=== PATIENT | female | born 1990 | race American Indian/Alaskan Native ===

== ENCOUNTER 2016-11-23 10:28 | Emergency (ER) | payer OTHER ==
[2016-11-23 10:46] VITALS: BP 131/88
[2016-11-23] MEDS ORDERED: FUL-GLO OP ONE (13:47)
[2016-11-23] MEDS ORDERED: TETRACAINE 0.5% OU PRN (13:47)
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
== END 2016-11-23 16:09 | disposition home or self-care (01) ==
LOC: ED 10:28
DX: H57.12 Ocular pain, left eye (principal); J45.909 Unspecified asthma, uncomplicated
CPT/HCPCS: 99282

== ENCOUNTER 2017-01-06 17:55 | Emergency (ER) | payer SELFPAY ==
[2017-01-06 18:26] VITALS: BP 100/58
[2017-01-06 18:59] LABS: Basophils % (Auto) 0.1 % (0.0-1.8); Eosinophils % (Auto) 0.4 % (0.0-4.3); Hematocrit 32.6 % (30.3-42.9); Hemoglobin 10.7 gm/dl (10.1-14.3); Mean Corpuscular HGB Conc 33 % (30-34); Mean Corpuscular Hemoglobin 26 pg (28-32); Mean Corpuscular Volume 80 fl (79-97); Platelet Count 209 K/mm3 (140-440); Red Blood Count 4.05 M/mm3 (3.65-5.03); Red Cell Distribution Width 16.7 % (13.2-15.2); White Blood Count 7.2 K/mm3 (4.5-11.0)
[2017-01-06 22:25] LABS: Bilirubin,Urine NEG (Negative); Blood,Urine MOD (Negative); Ketones,Urine TR mg/dL (Negative); Leukocyte Esterase,Urine TR (Negative); Mucus,Urine 3+ /HPF; Nitrite,Urine NEG (Negative); Protein,Urine <15 mg/dL mg/dL (Negative); Urobilinogen,Urine < 2.0 mg/dL (<2.0)
--- NOTE | 2017-01-09 19:36 | ED Elopement Review ---
ED Pt Elopement review - Results review Lab results: Laboratory Tests 01/06/17 01/06/17 01/06/17 18:39 18:39 Unknown WBC 7.2 RBC 4.05 Hgb 10.7 Hct 32.6 MCV 80 MCH 26 L MCHC 33 RDW 16.7 H Plt Count 209 Lymph % (Auto) 33.1 Nicholas % (Auto) 7.8 H Eos % (Auto) 0.4 Baso % (Auto) 0.1 Lymph # 2.4 Nicholas # 0.6 Eos # 0.0 Baso # 0.0 Seg Neutrophils % 58.6 Seg Neutrophils # 4.2 HCG, Quant 12622 H Urine Color Yellow Urine Turbidity Cloudy Urine pH 6.0 Ur Specific [place] 1.024 Urine Protein <15 mg/dl Urine Glucose (UA) Neg Urine Ketones Tr Urine Blood Mod Urine Nitrite Neg Urine Bilirubin Neg Urine Urobilinogen < 2.0 Ur Leukocyte Esterase Tr Urine WBC (Auto) 5.0 Urine RBC (Auto) 15.0 U Epithel Cells (Auto) 15.0 H Amorphous Crystals Few Urine Mucus 3+ - Call Back decision Pt Call Back Decision: No action required
== END 2017-01-06 22:05 | disposition left against medical advice (07) ==
LOC: ED 17:55
DX: O26.891 Other specified pregnancy related conditions, first trimester (principal); R10.9 Unspecified abdominal pain; Z3A.01 Less than 8 weeks gestation of pregnancy; Z53.21 Procedure and treatment not carried out due to patient leaving prior to being seen by health care provider
CPT/HCPCS: 36415; 81001; 84702; 85025

== ENCOUNTER 2017-02-24 19:09 | Emergency (ER) | payer SELFPAY | END 2017-02-24 20:37 | disposition home or self-care (01) | LOC: ED 19:09 | DX: N89.8 Other specified noninflammatory disorders of vagina (principal); Z53.21 Procedure and treatment not carried out due to patient leaving prior to being seen by health care provider ==

== ENCOUNTER 2018-06-17 17:32 | Emergency (ER) | payer MEDICAID ==
[2018-06-17] MEDS ORDERED: FUL-GLO OP ONE ×2 (18:59→19:03)
[2018-06-17] MEDS ORDERED: MOTRIN PO ONE (19:02)
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
[2018-06-17 19:32] VITALS: BP 118/72
== END 2018-06-17 19:30 | disposition home or self-care (01) ==
LOC: ED 17:32
DX: H18.821 Corneal disorder due to contact lens, right eye (principal); J45.909 Unspecified asthma, uncomplicated
CPT/HCPCS: 99283

== ENCOUNTER 2019-04-16 04:25 | Emergency (ER) | payer MEDICAID ==
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
[2019-04-16 05:33] LABS: Hematocrit 30.5 % (30.3-42.9); Hemoglobin 10.7 gm/dl (10.1-14.3); Mean Corpuscular HGB Conc 35 % (30-34); Mean Corpuscular Volume 88 fl (79-97); Platelet Count 186 K/mm3 (140-440); Red Blood Count 3.45 M/mm3 (3.65-5.03); Red Cell Distribution Width 14.1 % (13.2-15.2)
[2019-04-16 05:47] LABS: BUN/Creatinine Ratio 15; Blood Urea Nitrogen 9 mg/dL (7-17); Calcium 9.2 mg/dL (8.4-10.2); Hemolysis Index 10
[2019-04-16 05:49] LABS: INR 1.1 (0.87-1.13)
[2019-04-16] MEDS ORDERED: K-DUR PO ONE (06:17)
[2019-04-16 07:25] LABS: Bacteria,Urine 1+ /HPF (Negative); Bilirubin,Urine NEG (Negative); Blood,Urine SM (Negative); Color,Urine Yellow (Yellow); Mucus,Urine FEW /HPF; Protein,Urine <15 mg/dL mg/dL (Negative); Urobilinogen,Urine < 2.0 mg/dL (<2.0)
[2019-04-16 07:30] LABS: Amphetamine Screen,Urine PRESUMPTIVE NEGATIVE; Benzodiazepines Screen,Urine PRESUMPTIVE NEGATIVE; Cannabinoid Screen,Urine PRESUMPTIVE NEGATIVE; Cocaine Screen,Urine PRESUMPTIVE NEGATIVE; Methadone Screen,Urine PRESUMPTIVE NEGATIVE; Opiate Screen,Urine PRESUMPTIVE NEGATIVE
[2019-04-16] MEDS ORDERED: MACROBID PO ONE (07:49)
[2019-04-16] MEDS ORDERED: ZOFRAN IV ONE (07:49)
--- NOTE | 2019-04-16 07:50 | Emergency Department Report ---
ED Alcohol HPI - General Chief Complaint: Altered Mental Status Stated Complaint: ETOH Time Seen by Provider: 04/16/19 06:17 Source: EMS Mode of arrival: Stretcher Limitations: Altered Mental Status - History of Present Illness Initial Comments: 28-year-old female presents to the hospital currently 4 months with acute alcohol intoxication. Patient arrived via EMS. Patient apparently was found altered and acutely intoxicated in the bed with her pants off and shirt backwards. It was later determined that patient took off some of her clothes because she was vomiting and the clothes got soiled. Complains of continued nausea. When I initially went to evaluate patient she was ambulating to the wheelchair for transport to ultrasound while talking on the phone was alert. When she returned from ultrasound and was placed back in her bed she is not forthcoming with history of present illness. She was hesitant to open her eyes or answer my questions. She denies any pain. States she was vomiting and admits to alcohol intake. She has continued nausea. Mother is now at the bedside. She has had care with Dr. Franco Mcgee. - Related Data Previous Rx's Medication Instructions Recorded Last Taken Type Erythromycin [Erythromycin Ophth 1 applic OD QID #1 tube 06/17/18 Unknown Rx Oint] HYDROcodone/ACETAMINOPHEN [[place] 1 each PO Q6H #12 tablet 06/17/18 Unknown Rx 5-325 Tablet] Ibuprofen [Motrin 600 MG tab] 600 mg PO Q8H #30 tablet 06/17/18 Unknown Rx Nitrofurantoin [place]/M-Cryst 100 mg PO Q12HR #13 capsule 04/16/19 Unknown Rx [Macrobid CAP] Ondansetron [Zofran Odt] 4 mg PO Q8HR PRN #14 tab.rapdis 04/16/19 Unknown Rx Potassium Chloride [K-Dur] 20 meq PO QDAY #3 tablet 04/16/19 Unknown Rx Allergies Allergy/AdvReac Type Severity Reaction Status Date / Time No Known Allergies Allergy Verified 01/06/17 18:19 ED Review of Systems ROS: Stated complaint: ETOH Other details as noted in HPI Comment: All other systems reviewed and negative ED Past Medical Hx - Past Medical History Hx Hypertension: No Hx Asthma: Yes (last treated week of 05/11/16) Additional medical history: blood transfusions for post bleeding, anemia - Surgical History Additional Surgical History: c-sectionx1. D & C x 2 - Social History Smoking Status: Never Smoker Substance Use Type: Alcohol - Medications Home Medications: Home Medications Medication Instructions Recorded Confirmed Last Taken Type Erythromycin [Erythromycin Ophth 1 applic OD QID #1 tube 06/17/18 Unknown Rx Oint] HYDROcodone/ACETAMINOPHEN [[place] 1 each PO Q6H #12 tablet 06/17/18 Unknown Rx 5-325 Tablet] Ibuprofen [Motrin 600 MG tab] 600 mg PO Q8H #30 tablet 06/17/18 Unknown Rx Nitrofurantoin [place]/M-Cryst 100 mg PO Q12HR #13 capsule 04/16/19 Unknown Rx [Macrobid CAP] Ondansetron [Zofran Odt] 4 mg PO Q8HR PRN #14 tab.rapdis 04/16/19 Unknown Rx Potassium Chloride [K-Dur] 20 meq PO QDAY #3 tablet 04/16/19 Unknown Rx ED Physical Exam - General Limitations: Altered Mental Status - Other Other exam information: General: No limitations, patient is alert in no acute distress Head exam: Atraumatic, normocephalic Eyes exam: Normal appearance ENT: Moist mucous membrane, normal oropharynx Neck exam: Normal inspection, full range of motion, no meningismus nontender Respiratory exam: Clear to auscultation bilateral, no wheezes, rales, crackles Cardiovascular: Normal rate and rhythm, normal heart sounds Abdomen: Soft, nondistended, and nontender, with normal bowel sounds, no rebound, or guarding Extremity: Full range of motion normal inspection no deformity Back: Normal Inspection, full range of motion, no tenderness Neurologic: Alert, oriented x3, cranial nerves intact, no motor or sensory deficit Psychiatric: normal affect, normal mood Skin: Warm, dry, intact ED Course Vital Signs 04/16/19 04/16/19 04/16/19 04:40 05:14 05:18 Temperature 98.2 F Pulse Rate 99 H 109 H Respiratory 22 12 10 L Rate Blood Pressure 112/79 110/77 [Left] O2 Sat by Pulse 98 99 99 Oximetry 04/16/19 08:37 Temperature Pulse Rate 88 Respiratory 17 Rate Blood Pressure 98/54 [Left] O2 Sat by Pulse 98 Oximetry - Consultations Consultation #1: 04/16/19 08:24 Case discussed with her UNIVERS[employer] T[employer] doctor Dr. Franco Mcgee. He was informed that patient presents to the hospital today with acute alcohol intoxication. Ultrasound confirms 19 weeks and 2 day without any acute abnormalities at this time. ED Medical Decision Making - Lab Data Result diagrams: 04/16/19 05:06 04/16/19 05:06 Lab Results 04/16/19 04/16/19 04/16/19 Range/Units 05:06 05:06 05:06 WBC 9.3 (4.5-11.0) K/mm3 RBC 3.45 L (3.65-5.03) M/mm3 Hgb 10.7 (10.1-14.3) gm/dl Hct 30.5 (30.3-42.9) % MCV 88 (79-97) fl MCH 31 (28-32) pg MCHC 35 H (30-34) % RDW 14.1 (13.2-15.2) % Plt Count 186 (140-440) K/mm3 PT 13.9 (12.2-14.9) Sec. INR 1.10 (0.87-1.13) Sodium 139 (137-145) mmol/L Potassium 3.2 L (3.6-5.0) mmol/L Chloride 102.5 (98-107) mmol/L Carbon Dioxide 20 L (22-30) mmol/L Anion Gap 20 mmol/L BUN 9 (7-17) mg/dL Creatinine 0.6 L (0.7-1.2) mg/dL Estimated GFR > 60 ml/min BUN/Creatinine Ratio 15 % Glucose 98 (65-100) mg/dL Calcium 9.2 (8.4-10.2) mg/dL Magnesium 1.90 (1.7-2.3) mg/dL Total Creatine Kinase 150 H (30-135) units/L HCG, Quant (0-4) mIU/mL Urine Color (Yellow) Urine Turbidity (Clear) Urine pH (5.0-7.0) Ur Specific [place]inkle (1.003-1.030) Urine Protein (Negative) mg/dL Urine Glucose (UA) (Negative) mg/dL Urine Ketones (Negative) mg/dL Urine Blood (Negative) Urine Nitrite (Negative) Urine Bilirubin (Negative) Urine Urobilinogen (<2.0) mg/dL Ur Leukocyte Esterase (Negative) Urine WBC (Auto) (0.0-6.0) /HPF Urine RBC (Auto) (0.0-6.0) /HPF U Epithel Cells (Auto) (0-13.0) /HPF Urine Bacteria (Auto) (Negative) /HPF Urine Mucus /HPF Salicylates (2.8-20.0) mg/dL Urine Opiates Screen Urine Methadone Screen Acetaminophen (10.0-30.0) ug/mL Ur Barbiturates Screen Ur Phencyclidine Scrn Ur Amphetamines Screen U Benzodiazepines Scrn Urine Cocaine Screen U Marijuana (THC) Screen Drugs of Abuse Note Plasma/Serum Alcohol (0-0.07) % Blood Type Antibody Screen 04/16/19 04/16/19 04/16/19 Range/Units 05:06 05:06 05:06 WBC (4.5-11.0) K/mm3 RBC (3.65-5.03) M/mm3 Hgb (10.1-14.3) gm/dl Hct (30.3-42.9) % MCV (79-97) fl MCH (28-32) pg MCHC (30-34) % RDW (13.2-15.2) % Plt Count (140-440) K/mm3 PT (12.2-14.9) Sec. INR (0.87-1.13) Sodium (137-145) mmol/L Potassium (3.6-5.0) mmol/L Chloride (98-107) mmol/L Carbon Dioxide (22-30) mmol/L Anion Gap mmol/L BUN (7-17) mg/dL Creatinine (0.7-1.2) mg/dL Estimated GFR ml/min BUN/Creatinine Ratio % Glucose (65-100) mg/dL Calcium (8.4-10.2) mg/dL Magnesium (1.7-2.3) mg/dL Total Creatine Kinase (30-135) units/L HCG, Quant 5510 H (0-4) mIU/mL Urine Color (Yellow) Urine Turbidity (Clear) Urine pH (5.0-7.0) Ur Specific [place]inkle (1.003-1.030) Urine Protein (Negative) mg/dL Urine Glucose (UA) (Negative) mg/dL Urine Ketones (Negative) mg/dL Urine Blood (Negative) Urine Nitrite (Negative) Urine Bilirubin (Negative) Urine Urobilinogen (<2.0) mg/dL Ur Leukocyte Esterase (Negative) Urine WBC (Auto) (0.0-6.0) /HPF Urine RBC (Auto) (0.0-6.0) /HPF U Epithel Cells (Auto) (0-13.0) /HPF Urine Bacteria (Auto) (Negative) /HPF Urine Mucus /HPF Salicylates < 0.3 L (2.8-20.0) mg/dL Urine Opiates Screen Urine Methadone Screen Acetaminophen < 5.0 L (10.0-30.0) ug/mL Ur Barbiturates Screen Ur Phencyclidine Scrn Ur Amphetamines Screen U Benzodiazepines Scrn Urine Cocaine Screen U Marijuana (THC) Screen Drugs of Abuse Note Plasma/Serum Alcohol (0-0.07) % Blood Type Antibody Screen 04/16/19 04/16/19 04/16/19 Range/Units 05:06 05:06 05:45 WBC (4.5-11.0) K/mm3 RBC (3.65-5.03) M/mm3 Hgb (10.1-14.3) gm/dl Hct (30.3-42.9) % MCV (79-97) fl MCH (28-32) pg MCHC (30-34) % RDW (13.2-15.2) % Plt Count (140-440) K/mm3 PT (12.2-14.9) Sec. INR (0.87-1.13) Sodium (137-145) mmol/L Potassium (3.6-5.0) mmol/L Chloride (98-107) mmol/L Carbon Dioxide (22-30) mmol/L Anion Gap mmol/L BUN (7-17) mg/dL Creatinine (0.7-1.2) mg/dL Estimated GFR ml/min BUN/Creatinine Ratio % Glucose (65-100) mg/dL Calcium (8.4-10.2) mg/dL Magnesium (1.7-2.3) mg/dL Total Creatine Kinase (30-135) units/L HCG, Quant (0-4) mIU/mL Urine Color Yellow (Yellow) Urine Turbidity Slightly-cloudy (Clear) Urine pH 6.0 (5.0-7.0) Ur Specific Hinkle 1.013 (1.003-1.030) Urine Protein <15 mg/dl (Negative) mg/dL Urine Glucose (UA) Neg (Negative) mg/dL Urine Ketones 20 (Negative) mg/dL Urine Blood Sm (Negative) Urine Nitrite Pos (Negative) Urine Bilirubin Neg (Negative) Urine Urobilinogen < 2.0 (<2.0) mg/dL Ur Leukocyte Esterase Tr (Negative) Urine WBC (Auto) 4.0 (0.0-6.0) /HPF Urine RBC (Auto) 1.0 (0.0-6.0) /HPF U Epithel Cells (Auto) 3.0 (0-13.0) /HPF Urine Bacteria (Auto) 1+ (Negative) /HPF Urine Mucus Few /HPF Salicylates (2.8-20.0) mg/dL Urine Opiates Screen Urine Methadone Screen Acetaminophen (10.0-30.0) ug/mL Ur Barbiturates Screen Ur Phencyclidine Scrn Ur Amphetamines Screen U Benzodiazepines Scrn Urine Cocaine Screen U Marijuana (THC) Screen Drugs of Abuse Note Plasma/Serum Alcohol 0.20 H (0-0.07) % Blood Type B POSITIVE Antibody Screen Negative 04/16/19 Range/Units 05:45 WBC (4.5-11.0) K/mm3 RBC (3.65-5.03) M/mm3 Hgb (10.1-14.3) gm/dl Hct (30.3-42.9) % MCV (79-97) fl MCH (28-32) pg MCHC (30-34) % RDW (13.2-15.2) % Plt Count (140-440) K/mm3 PT (12.2-14.9) Sec. INR (0.87-1.13) Sodium (137-145) mmol/L Potassium (3.6-5.0) mmol/L Chloride (98-107) mmol/L Carbon Dioxide (22-30) mmol/L Anion Gap mmol/L BUN (7-17) mg/dL Creatinine (0.7-1.2) mg/dL Estimated GFR ml/min BUN/Creatinine Ratio % Glucose (65-100) mg/dL Calcium (8.4-10.2) mg/dL Magnesium (1.7-2.3) mg/dL Total Creatine Kinase (30-135) units/L HCG, Quant (0-4) mIU/mL Urine Color (Yellow) Urine Turbidity (Clear) Urine pH (5.0-7.0) Ur Specific Hinkle (1.003-1.030) Urine Protein (Negative) mg/dL Urine Glucose (UA) (Negative) mg/dL Urine Ketones (Negative) mg/dL Urine Blood (Negative) Urine Nitrite (Negative) Urine Bilirubin (Negative) Urine Urobilinogen (<2.0) mg/dL Ur Leukocyte Esterase (Negative) Urine WBC (Auto) (0.0-6.0) /HPF Urine RBC (Auto) (0.0-6.0) /HPF U Epithel Cells (Auto) (0-13.0) /HPF Urine Bacteria (Auto) (Negative) /HPF Urine Mucus /HPF Salicylates (2.8-20.0) mg/dL Urine Opiates Screen Presumptive negative Urine Methadone Screen Presumptive negative Acetaminophen (10.0-30.0) ug/mL Ur Barbiturates Screen Presumptive negative Ur Phencyclidine Scrn Presumptive negative Ur Amphetamines Screen Presumptive negative U Benzodiazepines Scrn Presumptive negative Urine Cocaine Screen Presumptive negative U Marijuana (THC) Screen Presumptive negative Drugs of Abuse Note Disclamer Plasma/Serum Alcohol (0-0.07) % Blood Type Antibody Screen - Radiology Data Radiology results: report reviewed PROCEDURE: US OB >= 14 WEEKS FETUS TECHNIQUE: Transabdominal second trimester ultrasound utilizing grayscale, color Doppler and M- mode technique HISTORY: , high risk, ams COMPARISONS: 01/06/2019 FINDINGS: There is a single living intrauterine in cephalic presentation with recorded cardiac activity of 148 bpm. Amniotic fluid volume is subjectively normal. Anterior placenta. A few placental lakes are noted. The placenta is otherwise homogeneous. No evident previa. The cervix appears closed and measures around 5 cm in length. Biparietal diameter is 4.4 cm Head circumference is 16.1 cm Abdominal circumference is 15.1 cm Femoral length is 2.9 cm biometric measurement composite results in estimated gestational age of 19 weeks 2 days corresponding to delivery date of 09/08/2019. Estimated weight is 298 g, which corresponds to the 43rd percentile based on prior established dating. The imaged anatomy is grossly unremarkable. IMPRESSION: Single living intrauterine with concordant size and dates and no evident complication, as detailed above. - Medical Decision Making She presents 19 weeks with acute alcohol intoxication. Zofran provided for persistent nausea. By mouth potassium and Macrobid given for mild hypokalemia and UA findings of UTI. Patient does not have any pain. Patient is at baseline mental status and alertness steady gait at time of discharge. Patient discharged into the care of mother - Differential Diagnosis alcohol intoxication, substance abuse Critical Care Time: No Critical care attestation.: If time is entered above; I have spent that time in minutes in the direct care of this critically ill patient, excluding procedure time. ED Disposition Clinical Impression: Acute alcohol intoxication, 19 weeks gestation of , UTI (urinary tract infection), Hypokalemia, Nausea and vomiting Disposition: DC-01 TO HOME OR SELFCARE Is pt being admited?: No Does the pt Need Aspirin: No Condition: Stable Instructions: (ED), Urinary Tract Infection in Women (ED), Hypokalemia (ED), Alcohol Intoxication (ED), Acute Nausea and Vomiting (ED) Additional Instructions: Abstain from drinking alcohol while you are . Follow-up with your [employer]IV[employer] [employer]OR doctor Alcohol Effects on a Fetus: What effect does alcohol have on a fetus? A woman who drinks alcohol while she is may harm her developing baby (fetus). Alcohol can pass from the mother's blood into the baby's blood. It can damage and affect the growth of the baby's cells. Brain and spinal cord cells are most likely to have damage. The term alcohol spectrum disorder (FASD) describes the range of alcohol effects on a child. The problems range from mild to severe. Alcohol can cause a child to have physical or mental problems that may last all of his or her life. The effects of alcohol can include: Distinctive facial features. A child may have a small head, flat face, and narrow eye openings, for instance. This gets more obvious by age 2 or 3 years. Growth problems. Children who were exposed to alcohol before they were born may be smaller than other children of the same age. Learning and behavior problems. defects. Problems bonding or feeding as a . Heavy alcohol use during can also lead to miscarriage , stillbirth, or a baby being born early . How much alcohol is safe? Although the risk is higher with heavy alcohol use, any amount of alcohol may affect your developing baby. Heavy drinking (5 or more drinks on at least one occasion) during can severely affect a developing baby. You can prevent FASD by not drinking at all while you are . That is what many doctors suggest. The effects that alcohol has on a developing baby depend on: How much, how often, and at what stage of the mother drinks alcohol. The worst effects often are related to heavy alcohol use. Whether the mother used other drugs, smoked, or had poor health for any reason while she was . In these cases, the child is more likely to have problems. Traits passed down through families. Some babies are more likely to be harmed by alcohol than others. It's not clear why, but there may be a genetic link. What can you do if you're and have had alcohol? Try to talk openly with your doctor if you have had alcohol while you're . The earlier you tell your doctor, the better the chances are for your child. If your doctor knows to look for FASD-related problems while you're , he or she can watch your baby's health both before and after . And the doctor will know to do more tests, if needed, as your child grows. If you think you might have a drinking problem, talk with your doctor, counselor, or other support person. Doing this can help you to see and address how alcohol may affect many parts of your life, including your . When are alcohol effects on a fetus diagnosed? Signs of FASD don't always appear at . A doctor may be able to spot severe alcohol effects ( alcohol syndrome, or FAS ) in the child at . But less severe effects, such as behavior or learning problems, may not be noticed until the child is in school. Sometimes the doctor can find severe problems before the baby is born. If your doctor knows about your alcohol use, he or she can order a test ( ultrasound ) to look for signs of FAS in your baby, such as heart defects or growth delays. The cause of problems that are found during the test may not be clear. But the findings alert the doctor to any special care a baby may need after he or she is born. What is the treatment for a child born with alcohol effects? Caring for a child born with alcohol effects takes patience. Help for your child may include extra support in school, social skills training, job training, and counseling . Community services may be able to help your family handle the costs of and emotions from raising your child. Finding alcohol effects early, even if they are mild, gives a child the best chance to reach his or her full potential in life. Finding the problem early may help prevent problems in school and mental health problems, such as substance abuse , depression , or anxiety . There is no treatment that can reverse the impact of alcohol on your baby's health. And there's no treatment that can make the effects less severe. Prescriptions: Potassium Chloride [K-Dur] 20 meq PO QDAY #3 tablet Nitrofurantoin Blair/M-Cryst [Macrobid CAP] 100 mg PO Q12HR #13 capsule Ondansetron [Zofran Odt] 4 mg PO Q8HR PRN #14 tab.rapdis PRN Reason: Nausea And Vomiting Referrals: FRANCO MCGEE MD [Staff Physician] - 3-5 Days Time of Disposition: 08:38
--- NOTE | 2019-04-16 07:55 | Ultrasound Report ---
PROCEDURE: US OB >= 14 WEEKS FETUS TECHNIQUE: Transabdominal second trimester ultrasound utilizing grayscale, color Doppler and M-mode technique HISTORY: , high risk, ams COMPARISONS: 01/06/2019 FINDINGS: There is a single living intrauterine in cephalic presentation with recorded cardiac activi ty of 148 bpm. Amniotic fluid volume is subjectively normal. Anterior placenta. A few placental lakes are noted. The placenta is otherwise homogeneous. No evident previa. The cervix appears closed and m easures around 5 cm in length. Biparietal diameter is 4.4 cm Head circumference is 16.1 cm Abdominal circumference is 15.1 cm Femoral length is 2.9 cm biometric measurement composite results in estimated gestational age of 19 weeks 2 days corresp onding to delivery date of 09/08/2019. Estimated weight is 298 g, which corresponds to the 43rd percentile based on prior established dating. The imaged anatomy is grossly unremarkable. IMPRESSION: Single living intrauterine with concordant size and dates and no evident complication, as d etailed above. This document is electronically signed by Lewis Serrano MD., April 16 2019 07:54:00 AM ET
[2019-04-16 08:38] VITALS: BP 98/54
== END 2019-04-16 08:53 | disposition home or self-care (01) ==
LOC: ED 04:25
DX: O26.892 Other specified pregnancy related conditions, second trimester (principal); F10.129 Alcohol abuse with intoxication, unspecified; E87.6 Hypokalemia; O23.42 Unspecified infection of urinary tract in pregnancy, second trimester; O99.512 Diseases of the respiratory system complicating pregnancy, second trimester; J45.909 Unspecified asthma, uncomplicated; Z3A.19 19 weeks gestation of pregnancy; Z79.899 Other long term (current) drug therapy
CPT/HCPCS: 36415; 76805; 80048; 80307; 81001; 82550; 83735; 84702; 85027; 85610; 86850; 86900; 86901; 93005; 93010; 96374; 99285; G0480; J2405; 80320

== ENCOUNTER 2019-05-06 14:49 | Outpatient (CLI) | payer MEDICAID ==
[2019-05-06 15:58] VITALS: BP 113/71
[2019-05-06] MEDS ORDERED: LACTATED RINGERS 500 ML IV ONE (16:06)
[2019-05-06 16:30] LABS: Basophils % (Auto) 0.1 % (0.0-1.8); Eosinophils % (Auto) 0.2 % (0.0-4.3); Hematocrit 30.6 % (30.3-42.9); Hemoglobin 10.5 gm/dl (10.1-14.3); Lymphocytes # (Auto) 1.5 K/mm3 (1.2-5.4); Lymphocytes % (Auto) 15.6 % (13.4-35.0); Mean Corpuscular HGB Conc 34 % (30-34); Mean Corpuscular Hemoglobin 31 pg (28-32); Mean Corpuscular Volume 89 fl (79-97); Monocytes # (Auto) 0.6 K/mm3 (0.0-0.8); Monocytes % (Auto) 6.3 % (0.0-7.3); Platelet Count 191 K/mm3 (140-440); Red Blood Count 3.45 M/mm3 (3.65-5.03); Red Cell Distribution Width 14.1 % (13.2-15.2)
[2019-05-06 16:57] LABS: Bacteria,Urine 1+ /HPF (Negative); Bilirubin,Urine NEG (Negative); Blood,Urine SM (Negative); Color,Urine Yellow (Yellow); Mucus,Urine FEW /HPF; Urobilinogen,Urine < 2.0 mg/dL (<2.0)
--- NOTE | 2019-05-06 17:38 | Ultrasound Report ---
OB ultrasound, limited History: PLACENTA SCAN FOR ABRUPTION Comparison: Comparison is with 04/16/2019 prior OB ultrasound Procedure: Real time ultrasound was utilized to evaluate. Findings: A single intrauterine is present in a cephalic presentation. Placenta is anterior ly located with grade 0. No evidence of abruption. . cardiac activity is present with a rate of 147 bpm. Impression: 1. Single viable IUP. Placenta is unremarkable in appearance and without evidence for abruption. Signer Name: Tika Pedroza MD Signed: 05/06/2019 5:34 PM Workstation Name: [id number]
[2019-05-06] MEDS ORDERED: PERCOCET 5/325 PO ONE (18:00)
[2019-05-06] MEDS ORDERED: LACTATED RINGERS 0 ML ONE (19:06)
== END 2019-05-06 21:04 | disposition home or self-care (01) ==
LOC: TRG 14:49 → APU 14:50 → TRG 21:04
PROVIDERS: ATTEND Obstetrics & Gynecology
DX: O47.02 False labor before 37 completed weeks of gestation, second trimester (principal); Z3A.22 22 weeks gestation of pregnancy
CPT/HCPCS: 36415; 76815; 81001; 85025; 85460; J7120

== ENCOUNTER 2019-06-22 18:22 | Outpatient (CLI) | payer MEDICAID ==
[2019-06-22 18:53] VITALS: BP 100/58
[2019-06-22] MEDS ORDERED: LACTATED RINGERS 1,000 ML ONE (20:24)
== END 2019-06-22 22:25 | disposition home or self-care (01) ==
LOC: TRG 18:22
PROVIDERS: ATTEND Obstetrics & Gynecology
DX: O26.893 Other specified pregnancy related conditions, third trimester (principal); N89.8 Other specified noninflammatory disorders of vagina; R10.2 Pelvic and perineal pain; Z3A.29 29 weeks gestation of pregnancy
CPT/HCPCS: 59025; 87210; J7120

== ENCOUNTER 2019-07-23 15:37 | Outpatient (CLI) | payer MEDICAID ==
[2019-07-23 15:50] VITALS: BP 110/59
== END 2019-07-23 16:56 | disposition home or self-care (01) ==
LOC: TRG 15:37
PROVIDERS: ATTEND Obstetrics & Gynecology
DX: O47.03 False labor before 37 completed weeks of gestation, third trimester (principal); Z3A.33 33 weeks gestation of pregnancy
CPT/HCPCS: 59025

== ENCOUNTER 2019-09-06 17:04 | Inpatient (IN) | payer MEDICAID ==
[2019-09-06] MEDS ORDERED: fentaNYL 100 MCG/2 ML INJ IV PRN (19:25)
[2019-09-06] MEDS ORDERED: LIDOCAINE (2%) 20 MG/1 ML VIAL 20 ML MDV INFILTRATI ONE ×2 (19:25→21:08)
[2019-09-06] MEDS ORDERED: NalbUPHINE 10 MG/1 ML INJ IV PRN (19:25)
[2019-09-06] MEDS ORDERED: MINERAL OIL 30 ML ORAL LIQD PO PRN ×2 (19:25→21:08)
[2019-09-06] MEDS ORDERED: TERBUTALINE 1 MG/1 ML INJ IVP PRN ×2 (19:25→21:08)
[2019-09-06] MEDS ORDERED: ePHEDrine SULFATE 50 MG/1 ML INJ IV PRN ×2 (19:25→21:08)
[2019-09-06] MEDS ORDERED: TERBUTALINE 1 MG/1 ML INJ SUB-Q PRN ×2 (19:25→21:08)
[2019-09-06] MEDS ORDERED: OXYTOCIN 20 UNIT/1000ML DRIP 20 UNITS/1,000 ML BAG IV SCH ×2 (20:00→22:00)
[2019-09-06] MEDS ORDERED: LACTATED RINGERS 1,000 ML IV SCH ×2 (20:00→22:00)
[2019-09-06] MEDS ORDERED: OXYTOCIN DRIP 30 UNITS/500 ML BAG IV SCH ×3 (20:00→22:00)
[2019-09-06 20:04] LABS: Hematocrit 31.5 % (30.3-42.9); Hemoglobin 10.7 gm/dl (10.1-14.3); Mean Corpuscular HGB Conc 34 % (30-34); Mean Corpuscular Volume 81 fl (79-97); Platelet Count 230 K/mm3 (140-440); Red Blood Count 3.87 M/mm3 (3.65-5.03)
[2019-09-06] MEDS ORDERED: BUTORPHANOL 2 MG/1 ML INJ IV PRN (21:08)
[2019-09-06] MEDS ORDERED: AMPICILLIN/NS 2 GM/100 ML 2 GM/100 ML BAG IV ONE (21:08)
[2019-09-06] MEDS ORDERED: ONDANSETRON 4 MG/2 ML INJ IV PRN (21:08)
[2019-09-06] MEDS ORDERED: NALOXONE 0.4 MG/1 ML INJ IV PRN (21:08)
--- NOTE | 2019-09-06 21:08 | History and Physical Report ---
History of Present Illness Date of examination: 09/06/19 Date of admission: 09/06/19 19:59 Chief complaint: Leaking fluid History of present illness: Pt is a 29yo BF EDC 09/08/19; EGA 39 5/7 weeks presents to L&D complaining of leaking fluid and irregular contractions. She received care at [facility] since 13 weeks and course significant for previous C Section - she desires a TOLAC. records are available and GBS is Negative. 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: abnormal PAP smear Family/Genetic History: diabetes, hypertension, cancer Social history: no significant social history, single - Obstetrical History Expected Date of Delivery: 09/08/19 Actual Gestation: 39 Week(s) 5 Day(s) : 5 Medications and Allergies Allergies Allergy/AdvReac Type Severity Reaction Status Date / Time No Known Allergies Allergy Verified 06/22/19 21:12 Home Medications Medication Instructions Recorded Confirmed Last Taken Type Erythromycin [Erythromycin Ophth 1 applic OD QID #1 tube 06/17/18 Unknown Rx Oint] HYDROcodone/ACETAMINOPHEN [[place] 1 each PO Q6H #12 tablet 06/17/18 Unknown Rx 5-325 Tablet] Ibuprofen [Motrin 600 MG tab] 600 mg PO Q8H #30 tablet 06/17/18 Unknown Rx Nitrofurantoin [place]/M-Cryst 100 mg PO Q12HR #13 capsule 04/16/19 Unknown Rx [Macrobid CAP] Ondansetron [Zofran Odt] 4 mg PO Q8HR PRN #14 tab.rapdis 04/16/19 Unknown Rx Potassium Chloride [K-Dur] 20 meq PO QDAY #3 tablet 04/16/19 Unknown Rx Clindamycin [Clindamycin CAP] 300 mg PO Q8H #21 cap 06/22/19 Unknown Rx Active Meds: Active Medications Ephedrine Sulfate (Ephedrine Sulfate) 10 mg IV Q2M PRN PRN Reason: Hypotension Fentanyl (Sublimaze) 100 mcg IV Q2H PRN PRN Reason: Labor Pain Oxytocin/Sodium Chloride (Pitocin/Ns 20 Unit/1000ml Drip) 20 units in 1,000 mls @ 125 mls/hr IV DIRECT HUA Oxytocin/Sodium Chloride (Pitocin/Ns 30 Unit/500ml) 30 units in 500 mls @ 1 mls/hr IV TITR HUA; Protocol Lactated Ringer's (Lactated Ringers) 1,000 mls @ 125 mls/hr IV DIRECT HUA Mineral Oil (Mineral Oil) 30 ml PO QHS PRN PRN Reason: Constipation Nalbuphine HCl (Nalbuphine) 10 mg IV Q2H PRN PRN Reason: Pain, Moderate (4-6) Terbutaline Sulfate (Brethine) 0.25 mg SUB-Q ONCE PRN PRN Reason: Hyperstimulation/Hypertonicity Terbutaline Sulfate (Brethine) 0.25 mg IVP ONCE PRN PRN Reason: Hyperstimulation/Hypertonicity Review of Systems All systems: negative - Vital Signs Vital signs: Vital Signs Pulse BP 88 124/73 09/06/19 17:45 09/06/19 17:45 Temp Pulse Resp BP Pulse Ox 98.1 F 81 24 127/75 09/06/19 19:56 09/06/19 20:24 09/06/19 19:56 09/06/19 20:24 - Physical Exam Breasts: Positive: deferred Lungs: Positive: Clear to auscultation Abdomen: Positive: normal appearance Genitourinary (Female): Positive: normal external genitalia Vagina: Positive: normal moisture Uterus: Positive: enlarged Extremities: Positive: normal - Obstetrical FHR: category 1 Uterine Contraction Monitor Mode: External Cervical Dilatation: 3.5 (per nurse) Cervical Effacement Percentage: 50 (per nurse) station: -3 Uterine Contraction Pattern: Irregular Uterine Tone Measurement Phase: Contraction Uterine Contraction Intensity: Mild Results Result Diagrams: 09/06/19 19:31 Abnormal lab results 09/06/19 Range/Units 19:31 RDW 17.0 H (13.2-15.2) % All other labs normal. Assessment and Plan - Patient Problems (1) 39 weeks gestation of Onset Date: 09/06/19 Current Visit: Yes Status: Acute Plan to address problem: A: IUP @ 39 5/7 weeks in labor Previous C Section P: Admit to L&D for TOLAC (2) Previous section Onset Date: 09/06/19 Current Visit: Yes Status: Acute
[2019-09-07] MEDS ORDERED: FAMOTIDINE 20 MG/2 ML INJ IV ONE ×2 (00:05→03:18)
[2019-09-07] MEDS ORDERED: BICITRA ORAL LIQD 30ML PO ONE (00:05)
[2019-09-07] MEDS ORDERED: METOCLOPRAMIDE 10 MG/2 ML INJ IV ONE (00:05)
[2019-09-07] MEDS ORDERED: OXYTOCIN 20 UNIT/1000ML DRIP 20 UNITS/1,000 ML BAG IV SCH ×2 (01:00→08:00)
[2019-09-07] MEDS ORDERED: ceFAZolin/Water 2 GM/20 ML 2 GM/20 ML SYRINGE IV NR (01:00)
[2019-09-07] MEDS ORDERED: AMPICILLIN/NS 1 GM/50 ML 1 GM/50 ML BAG IV SCH (01:11)
[2019-09-07] MEDS ORDERED: BICITRA ORAL LIQD 30ML ONE (03:17)
[2019-09-07] MEDS ORDERED: METOCLOPRAMIDE 10 MG/2 ML INJ ONE (03:17)
[2019-09-07] MEDS: LACTATED RINGERS 1,000 ML IV SCH ×2 (04:30→05:36)
[2019-09-07] MEDS ORDERED: SODIUM CHLORIDE 0.9% IRR 1,500 ML BOTTLE IR ONE (06:07)
[2019-09-07] MEDS ORDERED: WATER FOR IRRIG STERILE 1,500 ML BOTTLE IR ONE (06:07)
--- NOTE | 2019-09-07 06:32 | Anesthesia Consultation ---
Anesthesia Consult and Med Hx Date of service: 09/07/19 - Airway Anesthetic Teeth Evaluation: Good ROM Head & Neck: Adequate Mental/Hyoid Distance: Adequate Mallampati Class: Class II Intubation Access Assessment: Good - Pulmonary Exam CTA: Yes - Cardiac Exam Cardiac Exam: RRR - Pre-Operative Health Status ASA Pre-Surgery Classification: ASA2 Proposed Anesthetic Plan: Spinal - Pulmonary Hx Smoking: No Hx Asthma: No COPD: No Hx Pneumonia: No - Cardiovascular System Hx Hypertension: No - Central Nervous System Hx Seizures: No Hx Psychiatric Problems: No - Endocrine Hx Renal Disease: No Hx End Stage Renal Disease: No Hx Hypothyroidism: No Hx Hyperthyroidism: No - Hematic Hx Anemia: Yes Hx Sickle Cell Disease: No - Other Systems Hx Alcohol Use: No Hx Cancer: No
--- NOTE | 2019-09-07 06:34 | Anesthesia Day of Surgery ---
Anesthesia Day of Surgery - Day of Surgery Patient Examined: Yes Patient H&P Reviewed: Yes Patient is NPO: Yes
[2019-09-07] MEDS ORDERED: ONDANSETRON 4 MG/2 ML INJ IV PRN (06:35)
[2019-09-07] MEDS ORDERED: PROMETHAZINE 25 MG RECT SUPP PR PRN (06:35)
[2019-09-07] MEDS ORDERED: PROMETHAZINE 25 MG TAB PO PRN (06:35)
[2019-09-07] MEDS ORDERED: NALOXONE 0.4 MG/1 ML INJ IV PRN ×2 (06:35→08:00)
[2019-09-07] MEDS ORDERED: HYDROmorphone 1 MG/1 ML INJ IV PRN ×2 (06:35)
[2019-09-07] MEDS ORDERED: HYDROmorphone 1 MG/1 ML INJ ONE (07:00)
[2019-09-07] MEDS ORDERED: ONDANSETRON 4 MG/2 ML INJ ONE (07:00)
[2019-09-07] MEDS ORDERED: diphenhydrAMINE 50 MG/ML VIAL ONE (07:00)
[2019-09-07] MEDS ORDERED: fentaNYL-BUPIV 2 MCG/ML-0.125% 200 MCG/100 ML BAG EPIDURAL SCH (07:00)
[2019-09-07] MEDS ORDERED: DEXMEDETOMIDINE 200 MCG/2 ML VIAL IV ONE (07:00)
[2019-09-07] MEDS ORDERED: KETOROLAC 30 MG/1 ML INJ ONE (07:00)
--- NOTE | 2019-09-07 07:11 | Operative Report ---
Operative Report Operative Report: Date of procedure: 09/07/2019 Pre-operative diagnosis: 1. Intrauterine at 39 6/7 weeks in labor 2. Previous C Section Post-operative diagnosis: same Procedure name(s): Repeat low transverse section Surgeon: Franco Mcgee MD Author Agent: None Anesthesia: Spinal anesthesia by Francisco Javier Wilkes CRNA EBL: 800 mL's Findings: A 3396 gm male infant Apgars 8 at 1 minute 9 at 5 minutes. Clear amniotic fluid. Normal uterus. Normal tubes and ovaries bilaterally. Procedure: After the patient was prepped and draped in usual sterile fashion, and after satisfactory level of spinal anesthesia was obtained, the skin knife was used to make a transverse skin incision through the previous skin scar. The incision was incised down to layer of the fascia, which was nicked in the midline and extended laterally using the Bovie cautery. The rectus muscles were dissected off the rectus fascia both superiorly and inferiorly. The rectus bellies in the midline, and the peritoneum was entered under direct visualization. The peritoneal incision was extended superiorly and inferiorly. A bladder flap was created and the bladder blade was then placed. The uterus was scored in a curvilinear linear fashion, entered in the midline revealing clear amniotic fluid. The infant's head was delivered onto the surgical field with the aid of a vacuum, and the oropharynx and nasopharynx were bulb suctioned. The rest of the 's body was delivered, cord was doubly clamped and cut and the infant was handed to the awaiting respiratory team. The placenta was manually removed from the uterus, and the uterus removed from its normal anatomical position. After gentle uterine lavage, the incision was inspected and found to be without extensions. It was then closed in 2 layers using 0 Vicryl suture in a running interlocking fashion, the second layer imbricating the first. After good hemostasis was achieved, copious amounts or irrigation was performed, and the gutters were suctioned free of blood and blood clots. The peritoneum was re-approximated using 3-0 Vicryl suture in a running interlocking fashion, and then the rectus muscles were loosely re-approximated using 3-0 Vicryl suture in a [id number] configuration. The fascia was then re-approximated using 0 Vicryl suture in running interlocking fashion. The subcutaneous layer was made hemostatic using Bovie cautery, and the skin edges re-approximated using 4-0 Vicryl suture in a sub-cuticular fashion. Patient tolerated the procedure well was transported to recovery in stable condition.
[2019-09-07] MEDS ORDERED: ACETAMINOPHEN 325 MG TAB PO PRN (07:30)
[2019-09-07] MEDS ORDERED: HYDROcodone/ACETAMINOPHEN 5-325 MG TAB PO PRN (07:30)
[2019-09-07] MEDS ORDERED: WITCH HAZEL/ GLYCERIN PAD TP PRN (07:30)
[2019-09-07] MEDS ORDERED: D5W/LACTATED RINGERS 1,000 ML IV SCH (08:00)
[2019-09-07] MEDS ORDERED: LANOLIN/ZINC/DIMETHICONE (LANSINOH) 7 GM TP PRN (08:00)
[2019-09-07] MEDS ORDERED: SIMETHICONE 80 MG CHEW TAB PO PRN (08:00)
--- NOTE | 2019-09-07 08:33 | Post Anesthesia Evaluation ---
- Post Anesthesia Evaluation Patient Participated: Yes Airway Patent: Yes Stable Respiratory Function: Yes Nausea/Vomiting: No Temp > 96.8F: Yes Pain Manageable: Yes Adequeate Hydration: Yes Anesthesia Complications: No Block Receding Appropriately: Yes Patient on Ventilator: No
[2019-09-07] MEDS: PRENATAL VIT27-FE FUMARATE-FOLIC ACID VIT TAB PO SCH (09:50)
[2019-09-07] MEDS: FERROUS SULFATE 325 MG TAB PO SCH (09:50)
[2019-09-07] MEDS: KETOROLAC 30 MG/1 ML INJ IV PRN ×2 (09:50→15:24)
[2019-09-07] MEDS: ceFAZolin/NS 1 GM/50 ML 1 GM/50 ML BAG IV SCH (15:24)
[2019-09-07] MEDS: oxyCODONE /ACETAMINOPHEN 5-325MG TAB PO PRN (19:30)
[2019-09-07 20:46] LABS: Hematocrit 25.1 % (30.3-42.9); Hemoglobin 8.3 gm/dl (10.1-14.3)
[2019-09-07] MEDS ORDERED: MAGNESIUM HYDROXIDE (MOM) ORAL LIQD UDC PO PRN (22:00)
[2019-09-07] MEDS ORDERED: SENNOSIDES 8.6 MG TAB PO PRN (22:00)
[2019-09-08] MEDS: ceFAZolin/NS 1 GM/50 ML 1 GM/50 ML BAG IV SCH (01:04)
[2019-09-08] MEDS: KETOROLAC 30 MG/1 ML INJ IV PRN (01:05)
[2019-09-08] MEDS ORDERED: TETANUS,DIPH,PERTUSS(ACELL) VACCINE 0.5 ML SYRINGE IM ONE (06:00)
[2019-09-08] MEDS: oxyCODONE /ACETAMINOPHEN 5-325MG TAB PO PRN ×2 (07:52→22:41)
[2019-09-08] MEDS: IBUPROFEN 800 MG TAB PO PRN ×2 (10:36→20:55)
[2019-09-08] MEDS ORDERED: MEASLES, MUMPS & RUBELLA 12,500 UNIT/0.5 ML VACCINE SUB-Q ONE (11:00)
--- NOTE | 2019-09-08 12:15 | Progress Note ---
Assessment and Plan - Patient Problems (1) 39 weeks gestation of Onset Date: 09/06/19 Current Visit: Yes Status: Resolved (2) Previous section Onset Date: 09/06/19 Current Visit: Yes Status: Chronic (3) Status post section Onset Date: 09/08/19 Current Visit: Yes Status: Resolved Plan to address problem: A: S/P Repeat C Section - POD #1 Doing well Asymptomatic anemia - stable P: Continue RPOC Anticipate discharge in 24-48hrs (4) Acute blood loss anemia Onset Date: 09/08/19 Current Visit: Yes Status: Resolved Subjective - Subjective Date of service: 09/08/19 Principal diagnosis: s/p C Section - POD #1 Interval history: Pt is feeling well without complaints - just sore. She is tolerating a reg diet without nausea or vomiting, ambulating and voiding without difficulty. Patient reports: appetite normal, voiding normally, pain well controlled, flatus, ambulating normally, no dizzy ambulation, no nauseated : doing well, nursing well, bottle feeding Objective - Vital Signs Latest vital signs: Vital Signs Temp Pulse Resp BP BP Pulse Ox 09/08/19 08:32 98.3 F 80 18 103/57 09/08/19 01:42 98.6 F 82 20 117/66 99 09/07/19 19:30 98.7 F 66 18 118/78 09/07/19 16:01 99.2 F 82 16 103/62 98 09/07/19 12:36 97.9 F 84 20 119/71 98 Intake and Output 09/07/19 09/08/19 09/08/19 22:59 06:59 14:59 Intake Total 570 530 480 Output Total 1600 1300 Balance -1030 -770 480 Intake: IV 50 50 ANCEF/NS 1 GM/50 ML 1 gm 50 50 In 50 ml @ 100 mls/hr IV Q8H [facility] Rx#:[id number] Oral 520 480 480 Output: Urine 1600 1300 Indwelling Catheter 1000 600 Void 600 700 Other: Total, Intake Amount 200 240 480 Total, Output Amount 600 600 # Voids Void 1 1 - Exam Breasts: Present: deferred Abdomen: Present: normal appearance, soft Uterus: Present: normal, firm, fundal height below umbilicus Extremities: Present: normal Incision: Present: normal, dry, intact, dressed - Labs Labs: Abnormal lab results 09/07/19 Range/Units 20:16 Hgb 8.3 L (10.1-14.3) gm/dl Hct 25.1 L D (30.3-42.9) % Laboratory Tests 09/06/19 09/06/19 09/07/19 19:31 19:31 20:16 WBC 8.8 RBC 3.87 Hgb 10.7 8.3 L Hct 31.5 25.1 L D MCV 81 MCH 28 MCHC 34 RDW 17.0 H Plt Count 230 Blood Type B POSITIVE Antibody Screen Negative
--- NOTE | 2019-09-09 08:55 | Progress Note ---
Assessment and Plan - Patient Problems (1) 39 weeks gestation of Onset Date: 09/06/19 Current Visit: Yes Status: Resolved (2) Previous section Onset Date: 09/06/19 Current Visit: Yes Status: Chronic (3) Status post section Onset Date: 09/08/19 Current Visit: Yes Status: Resolved Plan to address problem: A: S/P Repeat C Section - POD #2 Doing well Asymptomatic anemia - stable P: May go home today. (4) Acute blood loss anemia Onset Date: 09/08/19 Current Visit: Yes Status: Resolved Subjective - Subjective Date of service: 09/09/19 Principal diagnosis: s/p C Section - POD #2 Interval history: Pt is feeling well without complaints. She is tolerating a reg diet without nausea or vomiting, ambulating and voiding without difficulty, and wants to go home today. Patient reports: appetite normal, voiding normally, pain well controlled, flatus, ambulating normally, no dizzy ambulation, no nauseated : doing well, nursing well, bottle feeding Objective - Vital Signs Latest vital signs: Vital Signs Temp Pulse Resp BP 09/09/19 00:00 98.6 F 74 18 117/68 09/08/19 16:29 98.4 F 79 18 108/67 Intake and Output 09/08/19 09/09/19 09/09/19 22:59 06:59 14:59 Intake Total 480 300 Balance 480 300 Intake: Oral 480 Intake, Free Water 300 Other: Total, Intake Amount 480 # Voids Void 1 1 - Exam Breasts: Present: deferred Abdomen: Present: normal appearance, soft Uterus: Present: normal, firm, fundal height below umbilicus Extremities: Present: normal Incision: Present: normal, dry, intact
--- NOTE | 2019-09-09 09:32 | Discharge Summary ---
Providers - Providers Date of Admission: 09/06/19 19:59 Date of discharge: 09/09/19 Attending physician: JAMES GAMBLE Primary care physician: JAMES GAMBLE Hospitalization Reason for admission: section, IUP at term Delivery: Procedure: section, repeat low transverse Episiotomy: none Laceration: none Incision: normal, dry, intact Other procedures: none complications: none Discharge diagnosis: IUP at term delivered [place] baby: male Hospital course: Pt is a 29yo BF EDC 09/08/19; EGA 39 5/7 weeks who presented to L&D complaining of leaking fluid and irregular contractions. She received care at [facility] since 13 weeks and course significant for previous C Section - she desired a TOLAC. After reading the consent for , Ms White changed her mind and opted for a Repeat C Section. She underwent an uncomplicated Repeat C Section. Postoperative course was unremarkable. By POD #1 she was tolerating a reg diet without nausea or vomiting, ambulating and voiding without difficulty. She was therefore discharged to home on POD #2 in stable condition. Condition at discharge: Good Disposition: DC-01 TO HOME OR SELFCARE - Discharge Diagnoses (1) 39 weeks gestation of Status: Resolved (2) Previous section Status: Chronic (3) Status post section Status: Resolved (4) Acute blood loss anemia Status: Resolved Plan - Discharge Medications Prescriptions: Ferrous Sulfate [Feosol 325 MG tab] 325 mg PO BID #60 tablet Ibuprofen [Motrin 800 MG tab] 800 mg PO Q6H PRN #30 tablet PRN Reason: Pain, Mild (1-3) oxyCODONE /ACETAMINOPHEN [Percocet 5/325 mg] 1 tab PO Q6H PRN #30 tablet PRN Reason: Pain, Moderate (4-6) Vit-Fe Fumar-FA [ Vitamin] 1 each PO QDAY #30 tablet - Provider Discharge Summary Activity: routine, no sex for 6 weeks, no heavy lifting 4 weeks, no strenuous exercise Diet: routine Instructions: routine Additional instructions: [] Smoking cessation referral if applicable(refer to patient education folder for contact #) [] Refer to [facility]'s [facility] Booklet Call your doctor immediately for: * Fever > 100.5 * Heavy vaginal bleeding ( >1 pad per hour) * Severe persistent headache * Shortness of breath * Reddened, hot, painful area to leg or breast * Drainage or odor from incision. * Keep incision clean and dry at all times and follow doctor's instructions regarding bathing/showering - Follow up plan Follow up: JAMES GAMBLE MD [Primary Care Provider] - 14 Days KATELYNN PAULINO CNM [Advanced Practice Nurse] - 14 Days
[2019-09-09] MEDS: PRENATAL VIT27-FE FUMARATE-FOLIC ACID VIT TAB PO SCH (11:12)
[2019-09-09] MEDS: FERROUS SULFATE 325 MG TAB PO SCH (11:12)
[2019-09-09] MEDS: oxyCODONE /ACETAMINOPHEN 5-325MG TAB PO PRN (11:12)
[2019-09-09 18:48] VITALS: BP 121/80
== END 2019-09-09 17:30 | disposition home or self-care (01) | DRG 765 ==
LOC: TRG 17:04 → LD 19:59 → OB 09-07 09:01
PROVIDERS: ADMIT Obstetrics & Gynecology; ATTEND Obstetrics & Gynecology
PROC: 10D00Z1 Extraction of Products of Conception, Low, Open Approach (ICD-10-PCS; principal; 2019-09-07)
PROC: 3E0234Z Introduction of Serum, Toxoid and Vaccine into Muscle, Percutaneous Approach (ICD-10-PCS; 2019-09-08)
DX: O34.211 Maternal care for low transverse scar from previous cesarean delivery (principal); D62 Acute posthemorrhagic anemia; O99.344 Other mental disorders complicating childbirth; F32.9 Major depressive disorder, single episode, unspecified; Z3A.39 39 weeks gestation of pregnancy; Z37.0 Single live birth; Z23 Encounter for immunization; Z83.3 Family history of diabetes mellitus; Z80.9 Family history of malignant neoplasm, unspecified; Z82.49 Family history of ischemic heart disease and other diseases of the circulatory system; Z79.899 Other long term (current) drug therapy; O90.81 Anemia of the puerperium
CPT/HCPCS: 36415; 85014; 85018; 85027; 86850; 86900; 86901; G0378; A6250; J0595; J0690; J1170; J1200; J1885; J2405; J2590; J2765; J3490; J7120; J7121

== ENCOUNTER 2019-12-09 03:03 | Emergency (ER) | payer MEDICAID ==
[2019-12-09] MEDS ORDERED: LIDOCAINE 1%/EPINEPHRINE 1:100,000 VIAL (20 ML) INFILTRATI ONE (03:10)
[2019-12-09] MEDS ORDERED: cephALEXin 500 MG CAP PO ONE (03:24)
[2019-12-09] MEDS ORDERED: TETANUS,DIPHTHERIA TOXOID ADULT 0.5 ML INJ IM ONE (03:24)
[2019-12-09 03:25] VITALS: BP 147/89
[2019-12-09] MEDS ORDERED: LIDOCAINE (1%) 10 MG/1 ML VIAL 20 ML MDV INFILTRATI ONE (03:27)
[2019-12-09] MEDS ORDERED: TETANUS,DIPH,PERTUSS(ACELL) VACCINE 0.5 ML SYRINGE IM ONE (03:29)
--- NOTE | 2019-12-09 03:38 | Emergency Department Report ---
Upper Extremity - HPI Chief Complaint: Wound/Laceration Stated Complaint: LAC TO LT HAND Time Seen by Provider: 12/09/19 03:28 Upper Extremity: Left Hand Occurred When: Today Mechanism: Other (cut with glass) Severity: severe Symptoms: Yes Pain with Movement, Yes Laceration or Abrasion, No Deformity, No Limited Range of Movement, No Numbness, No Weakness, No Swelling Other History: Ms. White is a 29 yo female who presents with severe bleeding from hand laceration. Her left hand was punctured with broken glass. Bleeding seems to be from an artery. Tetanus booster possibly 5 years ago. No other injury. ED Review of Systems ROS: Stated complaint: LAC TO LT HAND Other details as noted in HPI Constitutional: denies: fever, malaise Skin: rash, lesions Neurological: denies: numbness, paresthesias Hematological/Lymphatic: denies: easy bleeding ED Past Medical Hx - Past Medical History Previous Medical History?: Yes Hx Hypertension: No Hx Congestive Heart Failure: No Hx Diabetes: No Hx Deep Vein Thrombosis: No Hx Renal Disease: No Hx Sickle Cell Disease: No Hx Seizures: No Hx Asthma: No Hx COPD: No Hx HIV: No Additional medical history: blood transfusions for post bleeding, anemia - Surgical History Past Surgical History?: Yes Additional Surgical History: c-sectionx1. D & C x 2 - Social History Smoking Status: Never Smoker Substance Use Type: None - Medications Home Medications: Home Medications Medication Instructions Recorded Confirmed Last Taken Type Erythromycin [Erythromycin Ophth 1 applic OD QID #1 tube 06/17/18 Unknown Rx Oint] HYDROcodone/ACETAMINOPHEN [[place] 1 each PO Q6H #12 tablet 06/17/18 Unknown Rx 5-325 Tablet] Ibuprofen [Motrin 600 MG tab] 600 mg PO Q8H #30 tablet 06/17/18 Unknown Rx Nitrofurantoin [place]/M-Cryst 100 mg PO Q12HR #13 capsule 04/16/19 Unknown Rx [Macrobid CAP] Ondansetron [Zofran Odt] 4 mg PO Q8HR PRN #14 tab.rapdis 04/16/19 Unknown Rx Potassium Chloride [K-Dur] 20 meq PO QDAY #3 tablet 04/16/19 Unknown Rx Clindamycin [Clindamycin CAP] 300 mg PO Q8H #21 cap 06/22/19 Unknown Rx Acetaminophen [Tylenol] 325 mg PO 09/06/19 2 Days Ago History ~09/04/19 2 TAB Terconazole 09/06/19 Unknown History Ferrous Sulfate [Feosol 325 MG tab] 325 mg PO BID #60 tablet 09/09/19 Unknown Rx Ibuprofen [Motrin 800 MG tab] 800 mg PO Q6H PRN #30 tablet 09/09/19 Unknown Rx Vit-Fe Fumar-FA [ 1 each PO QDAY #30 tablet 09/09/19 Unknown Rx Vitamin] oxyCODONE /ACETAMINOPHEN [Percocet 1 tab PO Q6H PRN #30 tablet 09/09/19 Unknown Rx 5/325 mg] cephALEXin [Keflex] 500 mg PO Q8HR 7 Days #21 cap 12/09/19 Unknown Rx Upper Extremity Exam - Exam General: Vital signs noted. No distress. Alert and acting appropriately. Arm Exam: No Arm/Humerus Tenderness, No Arm Deformity Elbow: Yes Normal Range of Motion in Elbow, No Elbow Tenderness, No Elbow Deformity Forearm: No Forearm Tenderness, No Forearm Deformity, No Pain with Pronation, No Pain with Supination Wrist: Yes Normal ROM in Wrist, No Wrist Tenderness, No Wrist Deformity, No Snuffbox Tenderness CMS Exam: Yes Broken Skin (1.5 cm vertical laceration just proximal to MCP of left index finger, vessel bleeding, spewing venous blood from wound) ED Course Vital Signs 12/09/19 03:15 Temperature 98.3 F Pulse Rate 114 H Respiratory 18 Rate Blood Pressure 147/89 O2 Sat by Pulse 100 Oximetry - Laceration /Wound Repair Left Palm Hand Wound Location: upper extremity Wound's Depth, Shape: linear Wound Explored: no foreign body removed Betadine Prep?: No Anesthesia: 1% Lidocaine (3) Volume Anesthetic (ccs): 3 Wound Debrided: minimal Wound Repaired With: sutures Suture Size/Type: 4:0, nylon Layer Closure?: Yes (one suture 4-0 vicryl) Deep Layer Suture Size/Type: 4:0 Progress: Under urgent conditions, Patient gave verbal informed consent for hemostasis and laceration repair. I held pressure directly on the site of venous bleeding. I used 1% lidocaine with epinephrine to assist with hemostasis. After pressure, bleeding controlled with only oozing. I used 4-0 vicryl subcutaneous layer figure of eight stitch to control bleeding. 4 sutures of 4-0 nylon for skin layer. No further bleeding. Index finger ntact capillary refill after repair. Patient able to flex and extend index finger after repair. ED Medical Decision Making - Radiology Data Radiology results: report reviewed, image reviewed left hand: no fx on radioopaque foreign body - Medical Decision Making Complex laceration after left hand cut with glass with vessel bleeding. Hemostasis achieved. Suture repair completed. Tdap booster provided in the emergency department. Keflex provided considering the procedure was clean nonsterile which was necessary for hemostasis. Prescribed Keflex. X-ray of the hand not reveal any radiopaque foreign body. Critical care attestation.: If time is entered above; I have spent that time in minutes in the direct care of this critically ill patient, excluding procedure time. ED Disposition Clinical Impression: Laceration of hand with complication Disposition: DC-01 TO HOME OR SELFCARE Is pt being admited?: No Does the pt Need Aspirin: No Condition: Stable Instructions: Suture Care (ED) Additional Instructions: Please have the sutures removed in 10 to 14 days. Please return to the emergency department for signs of infection including fever, redness or purulent drainage. Prescriptions: cephALEXin [Keflex] 500 mg PO Q8HR 7 Days #21 cap
[2019-12-09] MEDS ORDERED: HYDROcodone/ACETAMINOPHEN 5-325 MG TAB PO ONE (03:51)
--- NOTE | 2019-12-09 04:02 | XRay Report ---
LEFT HAND 3 VIEWS INDICATION: laceration cut by glass. COMPARISON: No relevant prior imaging study available. FINDINGS: No acute skeletal abnormality. No radiodense foreign bodies. IMPRESSION: 1. No acute findings. Signer Name: Matty Alicea MD Signed: 12/09/2019 3:57 AM Workstation Name: [id number]
== END 2019-12-09 04:34 | disposition home or self-care (01) ==
LOC: ED 03:03
DX: S61.412A Laceration without foreign body of left hand, initial encounter (principal); W25.XXXA Contact with sharp glass, initial encounter; Y93.89 Activity, other specified; Y99.8 Other external cause status; Y92.89 Other specified places as the place of occurrence of the external cause
CPT/HCPCS: 90471; 90715

== ENCOUNTER 2019-12-10 02:17 | Emergency (ER) | payer MEDICAID ==
[2019-12-10 02:30] VITALS: BP 116/69
[2019-12-10] MEDS ORDERED: GLUCAGON (HUMAN RECOMBINANT) 1 MG/ML INJ ONE ×2 (02:31→02:43)
[2019-12-10] MEDS ORDERED: WATER FOR INJ Sterile (PF) 10 ML ONE (02:32)
== END 2019-12-10 08:30 | disposition left against medical advice (07) ==
LOC: ED 02:17
DX: R55 Syncope and collapse (principal); Z53.21 Procedure and treatment not carried out due to patient leaving prior to being seen by health care provider
CPT/HCPCS: J1610